=== PATIENT | female | born 1935 | race Two or more races ===

== ENCOUNTER 2022-10-20 12:05 | Inpatient (IN) | payer MEDICARE, OTHER ==
[~2022-10-20] VITALS: Ht 162.6 cm; Wt 70.0 kg
[2022-10-20] MEDS ORDERED: SODIUM CHLORIDE 0.9% 500 ML IVB ONE (13:45)
[2022-10-20] MEDS ORDERED: METOPROLOL TARTRATE 1MG/1ML-5ML VIAL IV ONE (13:45)
[2022-10-20 14:29] LABS: Basophils # (auto) 0 10 ^3/uL (0-0.2); Basophils % (auto) 0.3 % (0.0-2.0); Eosinophils # (auto) 0 10 ^3/uL (0-0.8); Eosinophils % (auto) 0.1 % (0.0-7.0); Hematocrit 41.4 % (36.0-46.0); Hemoglobin 13.4 g/dL (12.2-16.2); Lymphocytes # (auto) 1.3 10 ^3/uL (0.4-5.4); Lymphocytes % (auto) 10.6 % (10.0-50.0); Mean Corpuscular Hemoglobin 29.4 pg (28.0-32.0); Mean Corpuscular Hgb Conc. 32.4 g/dL (32.0-36.0); Mean Corpuscular Volume 90.5 fL (80.0-100.0); Monocytes # (auto) 1.3 10 ^3/uL (0-1.3); Monocytes % (auto) 10.8 % (0.0-12.0); Neutrophils # (auto) 9.5 10 ^3/uL (1.6-8.6); Neutrophils % (auto) 78.2 % (37.0-80.0); Red Blood Cells 4.58 10^6/uL (4.0-5.20); Red Cell Distribution Width 16.9 % (11.8-14.3); White Blood Cell 12.1 10^3/uL (4.4-10.8)
[2022-10-20 14:52] LABS: Calcium 8.8 mg/dL (8.5-10.1); Magnesium 2.4 mg/dL (1.6-2.6); Potassium 3.6 mmol/L (3.5-5.1)
[2022-10-20 14:57] LABS: BUN/Creatinine Ratio 27.6 (10.0-20.0); Bilirubin, Total 1.9 mg/dL (0.2-1.0); Total Protein 6.7 g/dL (6.4-8.2)
[2022-10-20 15:58] LABS: Urine Bacteria NONE SEEN /hpf (None Seen); Urine Blood Negative /uL (Negative); Urine Specific Gravity 1.022 (1.001-1.035); Urine WBC 1 /hpf (0 - 5)
[2022-10-20] MEDS ORDERED: FUROSEMIDE 40 MG/4 ML VIAL IV ONE (16:15)
[2022-10-20] MEDS: METOPROLOL TARTRATE 1MG/1ML-5ML VIAL IV SCH ×2 (17:39→18:13)
[2022-10-20 19:30] LABS: INR 1.55 (0.9-1.15)
[2022-10-20] MEDS: HYDROcodone-ACET 5/325MG TAB PO PRN (21:52)
[2022-10-20] MEDS: ATORVASTATIN 20 MG TAB PO SCH (22:16)
[2022-10-20] MEDS: FUROSEMIDE 20 MG/2 ML VIAL IV SCH (22:16)
[2022-10-20] MEDS: METOPROLOL TARTRATE 25 MG TAB PO SCH (22:16)
[2022-10-21] VITALS (14 sets, daily range): BP systolic 104–155; BP diastolic 66–91
[2022-10-21 05:46] LABS: Basophils # (auto) 0 10 ^3/uL (0-0.2); Basophils % (auto) 0.2 % (0.0-2.0); Eosinophils # (auto) 0.1 10 ^3/uL (0-0.8); Eosinophils % (auto) 0.7 % (0.0-7.0); Hematocrit 38.4 % (36.0-46.0); Hemoglobin 12.8 g/dL (12.2-16.2); Lymphocytes # (auto) 1.3 10 ^3/uL (0.4-5.4); Lymphocytes % (auto) 11.7 % (10.0-50.0); Mean Corpuscular Hgb Conc. 33.4 g/dL (32.0-36.0); Mean Corpuscular Volume 89.8 fL (80.0-100.0); Monocytes # (auto) 1.2 10 ^3/uL (0-1.3); Monocytes % (auto) 11.3 % (0.0-12.0); Neutrophils # (auto) 8.4 10 ^3/uL (1.6-8.6); Neutrophils % (auto) 76.1 % (37.0-80.0); Nucleated Red Blood Cells % 0.2 %; Red Blood Cells 4.28 10^6/uL (4.0-5.20)
[2022-10-21 05:58] LABS: Albumin 2.6 g/dL (3.4-5.0); Calcium 8.3 mg/dL (8.5-10.1)
[2022-10-21 06:01] LABS: BUN/Creatinine Ratio 32.6 (10.0-20.0); Bilirubin, Total 1.4 mg/dL (0.2-1.0); Total Protein 5.4 g/dL (6.4-8.2)
[2022-10-21] MEDS: FUROSEMIDE 20 MG/2 ML VIAL IV SCH (06:08)
[2022-10-21] MEDS: cefTRIAXone 1GM/50ML D5W 50 ML IV SCH (08:56)
[2022-10-21] MEDS: METOPROLOL TARTRATE 25 MG TAB PO SCH ×2 (08:56→21:45)
[2022-10-21] MEDS: PANTOPRAZOLE 40 MG/10 ML VIAL INJ IV SCH (08:56)
[2022-10-21] MEDS: LOSARTAN POTASSIUM 25 MG TAB PO SCH (08:56)
[2022-10-21] MEDS ORDERED: AZITHROMYCIN 500MG/ 250ML 250 ML IV SCH (10:00)
[2022-10-21] MEDS ORDERED: POTASSIUM CHLORIDE 80 MEQ, LIDOCAINE 1% (LOCAL ANESTH.) 6 ML in SODIUM CHL 0.9% 500 ML IV ONE (10:00)
[2022-10-21] MEDS: APIXABAN 2.5 MG TAB PO SCH ×2 (10:00→21:46)
[2022-10-21] MEDS ORDERED: DIGOXIN (250MCG/ML) 2 ML AMPULE IV ONE (15:15)
[2022-10-21] MEDS ORDERED: DIGOXIN 0.125 MG TAB PO ONE (15:30)
[2022-10-21] MEDS: FUROSEMIDE 40 MG/4 ML VIAL IV SCH (16:27)
[2022-10-21] MEDS: HYDROcodone-ACET 5/325MG TAB PO PRN (17:09)
[2022-10-21] MEDS ORDERED: MAGNESIUM SULFATE 1GM/100ML 100 ML IV ONE (18:30)
[2022-10-21] MEDS ORDERED: dilTIAZem 25 MG/5 ML VIAL IV ONE (18:30)
[2022-10-21] MEDS ORDERED: dilTIAZem 125 MG/25ML INJ VIAL IV ONE (18:45)
[2022-10-21] MEDS: POTASSIUM CHL 20 Meq TABLET PO SCH (21:45)
[2022-10-21] MEDS: ATORVASTATIN 20 MG TAB PO SCH (21:46)
[2022-10-22] VITALS (19 sets, daily range): BP systolic 114–156; BP diastolic 74–107
[2022-10-22 04:49] LABS: Calcium 8.2 mg/dL (8.5-10.1); Magnesium 1.9 mg/dL (1.6-2.6); Potassium 3.6 mmol/L (3.5-5.1)
[2022-10-22 04:51] LABS: BUN/Creatinine Ratio 29.5 (10.0-20.0)
[2022-10-22] MEDS: FUROSEMIDE 40 MG/4 ML VIAL IV SCH (05:45)
[2022-10-22] MEDS: PANTOPRAZOLE 40 MG/10 ML VIAL INJ IV SCH (07:23)
[2022-10-22] MEDS: LOSARTAN POTASSIUM 25 MG TAB PO SCH (07:23)
[2022-10-22] MEDS: cefTRIAXone 1GM/50ML D5W 50 ML IV SCH (07:23)
[2022-10-22] MEDS: AZITHROMYCIN 250 MG TAB PO SCH (07:23)
[2022-10-22] MEDS: METOPROLOL TARTRATE 25 MG TAB PO SCH ×2 (07:24→22:17)
[2022-10-22] MEDS: APIXABAN 2.5 MG TAB PO SCH ×2 (07:24→22:10)
[2022-10-22] MEDS: POTASSIUM CHL 20 Meq TABLET PO SCH (07:25)
[2022-10-22] MEDS ORDERED: AMIODARONE HCL 150 MG in D5W 5% 100 ML IV ONE (15:15)
[2022-10-22] MEDS ORDERED: AMIODARONE 450mg/250ml AE 250 ML IV SCH (16:00)
[2022-10-22] MEDS: ATORVASTATIN 20 MG TAB PO SCH (22:10)
[2022-10-22] MEDS: HYDROcodone-ACET 5/325MG TAB PO PRN (22:17)
[2022-10-22] MEDS: AMIODARONE 450mg/250ml AE 250 ML IV SCH (22:18)
[2022-10-23] VITALS (24 sets, daily range): BP systolic 111–171; BP diastolic 66–124
[2022-10-23] MEDS: HYDROcodone-ACET 5/325MG TAB PO PRN ×4 (00:02→23:25)
[2022-10-23 06:03] LABS: Potassium 3.7 mmol/L (3.5-5.1)
[2022-10-23 06:08] LABS: BUN/Creatinine Ratio 25.9 (10.0-20.0); Calcium 7.9 mg/dL (8.5-10.1)
[2022-10-23] MEDS: FUROSEMIDE 40 MG/4 ML VIAL IV SCH (06:30)
[2022-10-23] MEDS: PANTOPRAZOLE 40 MG/10 ML VIAL INJ IV SCH (09:30)
[2022-10-23] MEDS: cefTRIAXone 1GM/50ML D5W 50 ML IV SCH (09:30)
[2022-10-23] MEDS: LOSARTAN POTASSIUM 25 MG TAB PO SCH (09:31)
[2022-10-23] MEDS: AZITHROMYCIN 250 MG TAB PO SCH (09:31)
[2022-10-23] MEDS: DIGOXIN 0.125 MG TAB PO SCH (09:31)
[2022-10-23] MEDS: METOPROLOL TARTRATE 25 MG TAB PO SCH ×2 (09:32→23:24)
[2022-10-23] MEDS: APIXABAN 2.5 MG TAB PO SCH ×2 (09:32→23:24)
[2022-10-23] MEDS: POTASSIUM CHL 20 Meq TABLET PO SCH (09:32)
[2022-10-23] MEDS: AMIODARONE 450mg/250ml AE 250 ML IV SCH (12:30)
[2022-10-23] MEDS ORDERED: AMIODARONE HCL 200 MG TAB PO ONE (14:00)
[2022-10-23] MEDS: ATORVASTATIN 20 MG TAB PO SCH (23:23)
[2022-10-23] MEDS: AMIODARONE HCL 200 MG TAB PO SCH (23:24)
[2022-10-24 00:24] VITALS: BP 151/128
[2022-10-24 04:24] VITALS: BP 145/88
[2022-10-24] MEDS: FUROSEMIDE 40 MG/4 ML VIAL IV SCH (08:10)
[2022-10-24 09:30] VITALS: BP 160/84
[2022-10-24] MEDS: cefTRIAXone 1GM/50ML D5W 50 ML IV SCH (09:38)
[2022-10-24] MEDS: PANTOPRAZOLE 40 MG/10 ML VIAL INJ IV SCH (09:38)
[2022-10-24] MEDS: HYDROcodone-ACET 5/325MG TAB PO PRN ×2 (09:58→20:41)
[2022-10-24] MEDS: POTASSIUM CHL 20 Meq TABLET PO SCH (10:00)
[2022-10-24] MEDS: AZITHROMYCIN 250 MG TAB PO SCH (12:09)
[2022-10-24] MEDS: APIXABAN 2.5 MG TAB PO SCH ×2 (12:10→21:07)
[2022-10-24] MEDS: AMIODARONE HCL 200 MG TAB PO SCH ×2 (12:15→21:07)
[2022-10-24] MEDS: METOPROLOL TARTRATE 25 MG TAB PO SCH ×2 (12:17→21:06)
[2022-10-24 13:00] VITALS: BP 126/74
[2022-10-24 17:00] VITALS: BP 126/74
[2022-10-24] MEDS: ATORVASTATIN 20 MG TAB PO SCH (21:06)
[2022-10-24 22:00] VITALS: BP 148/94
[2022-10-25 05:00] VITALS: BP 155/94
[2022-10-25] MEDS: FUROSEMIDE 40 MG/4 ML VIAL IV SCH (06:57)
[2022-10-25] MEDS: cefTRIAXone 1GM/50ML D5W 50 ML IV SCH (08:12)
[2022-10-25 09:00] VITALS: BP 148/91
[2022-10-25 09:44] LABS: Basophils # (auto) 0 10 ^3/uL (0-0.2); Basophils % (auto) 0.3 % (0.0-2.0); Eosinophils # (auto) 0.1 10 ^3/uL (0-0.8); Eosinophils % (auto) 0.9 % (0.0-7.0); Hematocrit 45.5 % (36.0-46.0); Lymphocytes # (auto) 0.7 10 ^3/uL (0.4-5.4); Lymphocytes % (auto) 6.5 % (10.0-50.0); Mean Corpuscular Hemoglobin 29.6 pg (28.0-32.0); Mean Corpuscular Hgb Conc. 33.1 g/dL (32.0-36.0); Mean Corpuscular Volume 89.5 fL (80.0-100.0); Monocytes # (auto) 0.8 10 ^3/uL (0-1.3); Monocytes % (auto) 7.1 % (0.0-12.0); Neutrophils # (auto) 9.4 10 ^3/uL (1.6-8.6); Neutrophils % (auto) 85.2 % (37.0-80.0); Nucleated Red Blood Cells % 0.1 %; Red Blood Cells 5.08 10^6/uL (4.0-5.20); Red Cell Distribution Width 16.4 % (11.8-14.3)
[2022-10-25] MEDS: AZITHROMYCIN 250 MG TAB PO SCH (10:03)
[2022-10-25] MEDS: DIGOXIN 0.125 MG TAB PO SCH (10:03)
[2022-10-25] MEDS: AMIODARONE HCL 200 MG TAB PO SCH ×2 (10:03→21:30)
[2022-10-25] MEDS: POTASSIUM CHL 20 Meq TABLET PO SCH (10:04)
[2022-10-25] MEDS: METOPROLOL TARTRATE 25 MG TAB PO SCH ×2 (10:05→21:30)
[2022-10-25] MEDS: LOSARTAN POTASSIUM 25 MG TAB PO SCH (10:06)
[2022-10-25] MEDS: PANTOPRAZOLE 40 MG/10 ML VIAL INJ IV SCH (10:07)
[2022-10-25 10:08] LABS: Potassium 3.1 mmol/L (3.5-5.1)
[2022-10-25] MEDS: APIXABAN 2.5 MG TAB PO SCH ×2 (10:09→21:30)
[2022-10-25 10:18] LABS: BUN/Creatinine Ratio 22.4 (10.0-20.0); Calcium 8.6 mg/dL (8.5-10.1)
[2022-10-25] MEDS ORDERED: POTASSIUM CHL 20 Meq TABLET PO ONE (12:15)
[2022-10-25 13:00] VITALS: BP 139/84
[2022-10-25] MEDS: POTASSIUM EFFERVESENT TAB 25 MEQ PO SCH (16:22)
[2022-10-25 17:45] VITALS: BP 145/82
[2022-10-25] MEDS: ATORVASTATIN 20 MG TAB PO SCH (21:30)
[2022-10-25 22:00] VITALS: BP 153/84
[2022-10-26 05:00] VITALS: BP 154/91
[2022-10-26 05:53] LABS: BUN/Creatinine Ratio 23.8 (10.0-20.0); Calcium 8.8 mg/dL (8.5-10.1); Potassium 3.4 mmol/L (3.5-5.1)
[2022-10-26] MEDS: FUROSEMIDE 40 MG/4 ML VIAL IV SCH (06:02)
[2022-10-26] MEDS: cefTRIAXone 1GM/50ML D5W 50 ML IV SCH (08:48)
[2022-10-26 08:57] VITALS: BP 151/89
[2022-10-26] MEDS: POTASSIUM EFFERVESENT TAB 25 MEQ PO SCH (10:00)
[2022-10-26] MEDS: AMIODARONE HCL 200 MG TAB PO SCH ×2 (10:00→21:42)
[2022-10-26] MEDS: AZITHROMYCIN 250 MG TAB PO SCH (10:00)
[2022-10-26] MEDS: PANTOPRAZOLE 40 MG/10 ML VIAL INJ IV SCH (10:00)
[2022-10-26] MEDS: METOPROLOL TARTRATE 25 MG TAB PO SCH ×2 (10:01→21:42)
[2022-10-26] MEDS: LOSARTAN POTASSIUM 25 MG TAB PO SCH (10:01)
[2022-10-26] MEDS: APIXABAN 2.5 MG TAB PO SCH ×2 (10:01→21:42)
[2022-10-26 13:00] VITALS: BP 130/84
[2022-10-26] MEDS ORDERED: POTASSIUM EFFERVESENT TAB 25 MEQ PO ONE (13:45)
[2022-10-26 16:47] VITALS: BP 113/71
[2022-10-26 20:00] VITALS: BP 133/77
[2022-10-26] MEDS: ATORVASTATIN 20 MG TAB PO SCH (21:42)
[2022-10-26 22:00] VITALS: BP 133/77
[2022-10-26] MEDS: HYDROcodone-ACET 5/325MG TAB PO PRN (22:02)
[2022-10-27] VITALS (7 sets, daily range): BP systolic 128–161; BP diastolic 80–89
[2022-10-27] MEDS: FUROSEMIDE 40 MG/4 ML VIAL IV SCH (06:14)
[2022-10-27] MEDS: cefTRIAXone 1GM/50ML D5W 50 ML IV SCH (08:38)
[2022-10-27] MEDS: PANTOPRAZOLE 40 MG/10 ML VIAL INJ IV SCH (10:44)
[2022-10-27] MEDS: APIXABAN 2.5 MG TAB PO SCH ×2 (10:44→21:41)
[2022-10-27] MEDS: DIGOXIN 0.125 MG TAB PO SCH (10:46)
[2022-10-27] MEDS: METOPROLOL TARTRATE 25 MG TAB PO SCH ×2 (10:47→21:40)
[2022-10-27] MEDS: AZITHROMYCIN 250 MG TAB PO SCH (10:47)
[2022-10-27] MEDS: AMIODARONE HCL 200 MG TAB PO SCH ×2 (10:48→21:40)
[2022-10-27] MEDS: LOSARTAN POTASSIUM 25 MG TAB PO SCH (10:49)
[2022-10-27] MEDS: POTASSIUM EFFERVESENT TAB 25 MEQ PO SCH (10:50)
[2022-10-27] MEDS ORDERED: ATOR20TA50 PO (10:57)
[2022-10-27] MEDS ORDERED: MET25T PO (10:57)
[2022-10-27] MEDS ORDERED: AMIO200T33 PO (10:57)
[2022-10-27] MEDS ORDERED: FURO1TAB31 PO (10:57)
[2022-10-27] MEDS ORDERED: DIGO1TAB48 PO (10:57)
[2022-10-27] MEDS ORDERED: APIX2.5T PO (10:57)
[2022-10-27] MEDS ORDERED: LOS25T PO (10:57)
[2022-10-27] MEDS ORDERED: POTA-220 PO (10:57)
[2022-10-27] MEDS: ATORVASTATIN 20 MG TAB PO SCH (21:40)
[2022-10-27] MEDS: HYDROcodone-ACET 5/325MG TAB PO PRN (22:03)
[2022-10-28] MEDS: HYDROcodone-ACET 5/325MG TAB PO PRN (04:27)
[2022-10-28 05:00] VITALS: BP 159/88
[2022-10-28] MEDS: FUROSEMIDE 40 MG/4 ML VIAL IV SCH (06:04)
[2022-10-28] MEDS: cefTRIAXone 1GM/50ML D5W 50 ML IV SCH (09:04)
[2022-10-28 09:06] VITALS: BP 170/82
[2022-10-28] MEDS: AZITHROMYCIN 250 MG TAB PO SCH (10:09)
[2022-10-28] MEDS: METOPROLOL TARTRATE 25 MG TAB PO SCH (10:09)
[2022-10-28] MEDS: APIXABAN 2.5 MG TAB PO SCH (10:09)
[2022-10-28] MEDS: PANTOPRAZOLE 40 MG/10 ML VIAL INJ IV SCH (10:10)
[2022-10-28] MEDS: AMIODARONE HCL 200 MG TAB PO SCH (10:10)
[2022-10-28] MEDS: LOSARTAN POTASSIUM 25 MG TAB PO SCH (10:10)
[2022-10-28] MEDS: POTASSIUM EFFERVESENT TAB 25 MEQ PO SCH (10:10)
[2022-10-28] MEDS ORDERED: hydrALAZINE HCL 20 MG/ML VL IV PRN (10:45)
[2022-10-28] MEDS: Ensure HIGH Protein Chocolate 8oz Bottle PO SCH ×2 (12:34→18:34)
[2022-10-28 13:00] VITALS: BP 140/93
[2022-10-28 16:57] VITALS: BP 134/78
[2022-10-28 17:00] VITALS: BP 135/78
[2022-10-29] MEDS ORDERED: PANTOPRAZOLE 40 MG TAB PO SCH (10:00)
[2022-10-29] MEDS ORDERED: FUROSEMIDE 40 MG TAB PO SCH (10:00)
[2022-10-29] MEDS ORDERED: POTASSIUM EFFERVESENT TAB 25 MEQ PO SCH (10:00)
== END 2022-10-28 21:15 | DRG 194 ==
LOC: ER 12:05 → TELE 18:57 → DOU IN ICU 23:52 → TELE-EAST 10-21 01:14
PROVIDERS: ADMIT Nurse Practitioner Family; ATTEND Internal Medicine
PROC: 05HD33Z Insertion of Infusion Device into Right Cephalic Vein, Percutaneous Approach (ICD-10-PCS; principal; 2022-10-23)
PROC: B54MZZA Ultrasonography of Right Upper Extremity Veins, Guidance (ICD-10-PCS; 2022-10-23)
DX: I11.0 Hypertensive heart disease with heart failure (principal); J96.00 Acute respiratory failure, unspecified whether with hypoxia or hypercapnia; I21.A1 Myocardial infarction type 2; J18.9 Pneumonia, unspecified organism; I27.20 Pulmonary hypertension, unspecified; D68.69 Other thrombophilia; E44.1 Mild protein-calorie malnutrition; Z79.01 Long term (current) use of anticoagulants; I50.43 Acute on chronic combined systolic (congestive) and diastolic (congestive) heart failure; I48.20 Chronic atrial fibrillation, unspecified; E66.9 Obesity, unspecified; E78.5 Hyperlipidemia, unspecified; E87.6 Hypokalemia; I08.1 Rheumatic disorders of both mitral and tricuspid valves; R29.6 Repeated falls; S00.83XA Contusion of other part of head, initial encounter; W06.XXXA Fall from bed, initial encounter; Z79.899 Other long term (current) drug therapy; Z68.26 Body mass index [BMI] 26.0-26.9, adult; R29.810 Facial weakness
CPT/HCPCS: 36415; 36600; 70450; 70486; 71045; 72125; 72131; 80048; 80053; 80162; 81001; 82805; 83735; 83880; 84484; 85025; 85610; 87081; 93005; 93306; 96361; 96365; 97110; 97116; 97163; 97530; C9113; G0378; J0696; J2001; J7060